=== PATIENT | male | born 1940 | race African-American/Black ===

== ENCOUNTER 2024-02-26 07:28 | Inpatient (IN) | payer OTHER ==
[~2024-02-26] VITALS: Ht 190.5 cm; Wt 97.5 kg
[2024-02-26 08:37] LABS: CHLORIDE 107 mEq/L (98-107); INR 1.1; PARTIAL THROMBOPLASTIN TIME 34.6 sec (23.4-31.0); POTASSIUM 4.3 mEq/L (3.5-5.1); PROTHROMBIN TIME 11.9 sec (9.6-11.0); SODIUM 141 mEq/L (136-145)
[2024-02-26 08:38] LABS: BASOPHILS % 0.3 % (0.0-2.0); CALCIUM 9.3 mg/dL (8.7-10.4); CARBON DIOXIDE 24 mEq/L (21-32); DIFFERENTIAL COMMENT 0; HEMATOCRIT. 31.3 % (42.0-52.0); HEMOGLOBIN. 9.6 g/dL (14.0-18.0); LYMPHOCYTES % 11.6 % (20.0-50.0); MEAN CORPUSCULAR HEMOGLOBIN 23.6 pg (28.0-32.0); MEAN CORPUSCULAR HGB CONC 30.6 g/dL (31.0-37.0); MEAN CORPUSCULAR VOLUME 77.1 fL (80.0-94.0); MEAN PLATELET VOLUME 10.5 fl (7.4-10.4); MONOCYTES % 7.1 % (2.0-8.0); PLATELET 206 x1000/uL (130-400); RED BLOOD CELL COUNT 4.06 mill/uL (4.7-6.1); RED CELL DISTRIBUTION WIDTH 20.4 % (11.6-14.6); WHITE BLOOD COUNT 9.1 x1000/uL (4.5-11.0)
[2024-02-26 08:43] LABS: CREATININE 1.3 mg/dL (0.6-1.3); GLUCOSE 160 mg/dL (70-105); UREA NITROGEN BLOOD 19 mg/dL (9-23)
[2024-02-26 09:09] LABS: TROPONIN I HIGH SENSITIVITY 910 ng/L (3.0-53)
[2024-02-26] MEDS: CLOPIDOGREL 75MG TABLET PO ONE (09:26)
[2024-02-26] MEDS: ASPIRIN 325MG EC TABLET PO ONE (09:26)
[2024-02-26] MEDS ORDERED: GUAIFENESIN 200MG/10ML SUGAR FREE UDC PO PRN (11:15)
[2024-02-26] MEDS ORDERED: CLONIDINE 0.1MG TABLET PO PRN (11:15)
[2024-02-26] MEDS ORDERED: DOCUSATE SODIUM 100MG CAPSULE PO PRN (11:15)
[2024-02-26] MEDS ORDERED: DEXTROSE 50% WATER 50ML SYRINGE IV PRN (11:15)
[2024-02-26] MEDS ORDERED: ACETAMINOPHEN 325MG TABLET PO PRN (11:15)
[2024-02-26] MEDS ORDERED: NITROGLYCERIN 0.4MG TABLET SL SL PRN (12:00)
[2024-02-26] MEDS: BLOOD SUGAR DIAGNOSTIC STRIP TEST SCH (13:00)
[2024-02-26] MEDS: INSULIN LISPRO 100 UNITS/ML SUBCUT SCH (13:20)
[2024-02-26 18:12] LABS: IRON 27 ug/dL (65-175)
[2024-02-26 18:15] LABS: CREATINE KINASE 1132 IU/L (46-171); TOTAL IRON BINDING CAPACITY 273 ug/dl (250-425)
[2024-02-26 18:20] LABS: FERRITIN 10 ng/mL (22-322); FOLIC ACID (FOLATE) SERUM > 20.00 ng/mL (>5.38)
[2024-02-26 18:21] LABS: VITAMIN B12 SERUM 453 pg/mL (211-911)
[2024-02-26 18:23] LABS: TROPONIN I HIGH SENSITIVITY 14981 ng/L (3.0-53)
[2024-02-26] MEDS: ENOXAPARIN 150MG/ML SYR SUBCUT SCH (18:33)
[2024-02-26] MEDS: IPRATROPIUM/ALBUTEROL 0.5-3(2.5)MG/3ML NEB HHN PRN (18:44)
[2024-02-26 18:59] VITALS: PULSE 67; RESP 18; O2SAT 98
[2024-02-26 20:00] VITALS: BP 137/62; PULSE 62; RESP 19; TEMP 36.89184; O2SAT 97
[2024-02-26] MEDS ORDERED: TICAGRELOR 90 MG TABLET PO SCH (21:00)
[2024-02-26 22:00] VITALS: BP 138/61; PULSE 64; RESP 16; O2SAT 97
[2024-02-26] MEDS: ATORVASTATIN CALCIUM 40MG TABLET PO SCH (22:19)
[2024-02-27] VITALS (13 sets, daily range): BP systolic 113–159; BP diastolic 59–87; PULSE 62–75; RESP 18–25; TEMP 36.16956–37.61412; O2SAT 91–97
[2024-02-27 00:03] LABS: TROPONIN I HIGH SENSITIVITY 16586 ng/L (3.0-53)
[2024-02-27 00:05] LABS: CREATINE KINASE 1297 IU/L (46-171)
[2024-02-27] MEDS ORDERED: OMEP20CA14 PO (00:09)
[2024-02-27] MEDS ORDERED: ISOS60TA76 PO (00:09)
[2024-02-27] MEDS ORDERED: LOSA25TA26 PO (00:09)
[2024-02-27] MEDS ORDERED: ATOR40TA70 MT (00:09)
[2024-02-27] MEDS ORDERED: FLUT1BLS3 IH (00:09)
[2024-02-27] MEDS ORDERED: METF-414 PO (00:09)
[2024-02-27] MEDS ORDERED: FAMO40TA7 MT (00:09)
[2024-02-27] MEDS ORDERED: PRIM50TA5 MT (00:09)
[2024-02-27] MEDS ORDERED: NITROGLYCERIN 0.4MG TABLET SL SL PRN (01:15)
[2024-02-27] MEDS: ONDANSETRON HCL 4MG/2ML INJ IV PRN (02:21)
[2024-02-27 02:31] LABS: CLARITY URINE CLEAR (CLEAR); COLOR URINE YELLOW (YELLOW); GLUCOSE URINE 3+ (NEGATIVE); KETONES URINE TRACE (NEGATIVE); LEUKOCYTE ESTERASE URINE NEGATIVE (NEGATIVE); NITRITE URINE NEGATIVE (NEGATIVE); OCCULT BLOOD URINE NEGATIVE (NEGATIVE); PH URINE 5.5 (4.5-8.0); PROTEIN URINE NEGATIVE (NEGATIVE); SPECIFIC GRAVITY URINE 1.024 (1.005-1.030); UROBILINOGEN URINE 0.2 E.U./dL (0.2-1.0)
[2024-02-27 02:39] LABS: *AMPHETAMINES SCREEN URINE NEGATIVE (NEGATIVE); *BENZODIAZEPINES SCREEN URINE NEGATIVE (NEGATIVE)
[2024-02-27 02:40] LABS: *BARBITURATES SCREEN URINE NEGATIVE (NEGATIVE); *COCAINE SCREEN URINE NEGATIVE (NEGATIVE); CANNABINOID URINE SCREEN NEGATIVE (NEGATIVE); ECSTASY MDMA SCREEN URINE NEGATIVE (NEGATIVE); METHADONE URINE SCREEN NEGATIVE (NEGATIVE); OPIATES URINE SCREEN NEGATIVE (NEGATIVE); PHENCYCLIDINE URINE SCREEN NEGATIVE (NEGATIVE)
[2024-02-27 03:43] LABS: SQUAMOUS EPITHELIAL CELL URINE FEW /lpf (RARE/1+)
[2024-02-27 03:44] LABS: RBC URINE 0-2 /hpf (0-2); WBC URINE 0-2 /hpf (0-2)
[2024-02-27 03:45] LABS: BACTERIA URINE NONE SEEN
[2024-02-27 07:34] LABS: CARBON DIOXIDE 23 mEq/L (21-32); CHLORIDE 106 mEq/L (98-107); POTASSIUM 4.8 mEq/L (3.5-5.1); SODIUM 142 mEq/L (136-145)
[2024-02-27 07:35] LABS: CALCIUM 9.5 mg/dL (8.7-10.4)
[2024-02-27 07:38] LABS: BASOPHILS % 0.2 % (0.0-2.0); DIFFERENTIAL COMMENT 0; HEMATOCRIT. 35.3 % (42.0-52.0); HEMOGLOBIN. 10.8 g/dL (14.0-18.0); LYMPHOCYTES % 9.4 % (20.0-50.0); MEAN CORPUSCULAR HEMOGLOBIN 23.1 pg (28.0-32.0); MEAN CORPUSCULAR HGB CONC 30.6 g/dL (31.0-37.0); MEAN CORPUSCULAR VOLUME 75.7 fL (80.0-94.0); MEAN PLATELET VOLUME 11.1 fl (7.4-10.4); MONOCYTES % 8.6 % (2.0-8.0); NEUTROPHILS % 81.8 % (40.0-76.0); PLATELET 226 x1000/uL (130-400); RED BLOOD CELL COUNT 4.66 mill/uL (4.7-6.1); RED CELL DISTRIBUTION WIDTH 19.6 % (11.6-14.6); WHITE BLOOD COUNT 14.8 x1000/uL (4.5-11.0)
[2024-02-27 07:39] LABS: CREATININE 1.3 mg/dL (0.6-1.3); GLUCOSE 142 mg/dL (70-105)
[2024-02-27 07:40] LABS: LDL CHOLESTEROL 58 mg/dL (5-100); TRIGLYCERIDE 96 mg/dL (0-150); UREA NITROGEN BLOOD 17 mg/dL (9-23)
[2024-02-27 07:42] LABS: CHOLESTEROL 139 mg/dL (<200); HDL CHOLESTEROL 58 mg/dL (>55); THYROID STIMULATING HORMONE 3.14 uIU/mL (0.55-4.78)
[2024-02-27] MEDS: ASPIRIN 81MG EC TABLET PO SCH (08:39)
[2024-02-27] MEDS: FUROSEMIDE 40MG/4ML VIAL IV SCH (08:39)
[2024-02-27] MEDS: MAGNESIUM/ALUMINUM HYDROXIDE/SIMETHICONE 30ML UDC PO PRN (20:52)
[2024-02-28] VITALS (30 sets, daily range): BP systolic 78–167; BP diastolic 54–94; PULSE 64–104; RESP 17–37; TEMP 37.00296–38.00304; O2SAT 74–100
[2024-02-28 01:47] LABS: TROPONIN I HIGH SENSITIVITY 7715 ng/L (3.0-53)
[2024-02-28] MEDS ORDERED: INSULIN GLARGINE 100 UNITS/ML SUBCUT SCH (10:00)
[2024-02-28] MEDS: ACETAMINOPHEN 325MG TABLET PO PRN (13:03)
[2024-02-28] MEDS ORDERED: FENTANYL 2500MCG/250ML PMX 250 ML IV PRN (16:15)
[2024-02-28] MEDS ORDERED: IPRATROPIUM/ALBUTEROL 0.5-3(2.5)MG/3ML NEB HHN PRN (17:30)
[2024-02-28 18:35] LABS: BG BASE EXCESS -8.1 mmol/L (-2.0-3.0); BG CARBOXYHEMOGLOBIN 0.7 % (0.5-1.5); BG DEOXYHEMOGLOBIN 8.4 % (0.0-5.0); BG FRACTION INSPIRED OXYGEN 100; BG HCO3 ACT 20.1 mmol/L (21.0-28.0); BG METHEMOGLOBIN 0.3 % (0.5-1.5); BG OXYGEN SATURATION 91.5 % (94.0-98.0); BG OXYHEMOGLOBIN 90.6 % (94.0-98.0); BG PCO2 52.4 mmHg (35.0-48.0); BG PH 7.202 (7.350-7.450); BG PO2 79.3 mmHg (83.0-108.0); BG SAMPLE SITE RIGHT BRACHIAL; BG TOTAL HEMOGLOBIN 12.6 g/dL (13.5-17.5); BG VENT MODE VENT - AC
[2024-02-28] MEDS: FENTANYL CITRATE 2,500 MCG in SODIUM CHLORIDE 0.9% 200 ML IV PRN (19:00)
[2024-02-28] MEDS ORDERED: DEXTROSE 50% WATER 50ML SYRINGE IV PRN (19:30)
[2024-02-28] MEDS: SODIUM CHLORIDE 0.9% 500 ML IV ONE (19:53)
[2024-02-28] MEDS: BLOOD SUGAR DIAGNOSTIC STRIP TEST SCH (21:00)
[2024-02-28] MEDS ORDERED: CEFTRIAXONE 1GM/50ML 50 ML IV SCH (21:00)
[2024-02-28] MEDS: IPRATROPIUM/ALBUTEROL 0.5-3(2.5)MG/3ML NEB HHN SCH (21:18)
[2024-02-28 22:00] LABS: HEMOGLOBIN. 11.5 g/dL (14.0-18.0); MEAN CORPUSCULAR HEMOGLOBIN 23.4 pg (28.0-32.0); MEAN CORPUSCULAR HGB CONC 30.3 g/dL (31.0-37.0); MEAN CORPUSCULAR VOLUME 77.3 fL (80.0-94.0); MEAN PLATELET VOLUME 10.5 fl (7.4-10.4); PLATELET 231 x1000/uL (130-400); RED BLOOD CELL COUNT 4.91 mill/uL (4.7-6.1); RED CELL DISTRIBUTION WIDTH 20.3 % (11.6-14.6)
[2024-02-28 22:04] LABS: DIFFERENTIAL COMMENT 1
[2024-02-28 22:05] LABS: CHLORIDE 104 mEq/L (98-107); POTASSIUM 4.8 mEq/L (3.5-5.1); SODIUM 138 mEq/L (136-145)
[2024-02-28 22:06] LABS: CALCIUM 8.8 mg/dL (8.7-10.4); CARBON DIOXIDE 24 mEq/L (21-32)
[2024-02-28 22:11] LABS: GLUCOSE 180 mg/dL (70-105); UREA NITROGEN BLOOD 30 mg/dL (9-23)
[2024-02-28 22:13] LABS: ALANINE AMINOTRANSFERASE 1095 IU/L (10-49); ASPARTATE AMINOTRANSFERASE 854 IU/L (<34); BILIRUBIN TOTAL 0.8 mg/dL (0.1-1.0); PROTEIN TOTAL 6.8 g/dL (6.0-8.3)
[2024-02-28] MEDS: DOXYCYCLINE 100MG/100ML 100 ML IV SCH (22:14)
[2024-02-28] MEDS: AMIODARONE 200MG TABLET PO SCH (22:15)
[2024-02-28 22:29] LABS: CREATININE 2.3 mg/dL (0.6-1.3); TROPONIN I HIGH SENSITIVITY 7278 ng/L (3.0-53)
[2024-02-28] MEDS: NOREPINEPHRINE 8MG/250ML PMX 250 ML IV PRN (23:09)
[2024-02-28 23:21] LABS: PLATELET ESTIMATE NORMAL
[2024-02-28 23:22] LABS: ANISOCYTOSIS 2+; OVALOCYTES 1+
[2024-02-28] MEDS ORDERED: LACTATED RINGERS 1,000 ML IV SCH (23:30)
[2024-02-29] VITALS (175 sets, daily range): BP systolic 48–201; BP diastolic 16–132; PULSE 27–132; RESP 10–57; TEMP 34.4472–37.05852; O2SAT 54–100
[2024-02-29] MEDS: PIPERACILLIN/TAZO 3.375G/100ML 100 ML IV SCH (01:18)
[2024-02-29] MEDS: ACETYLCYSTEINE 200MG/ML 20% VIAL 4ML INH SCH (02:27)
[2024-02-29] MEDS: PROPOFOL 10MG/ML 100ML 100 ML IV PRN (02:28)
[2024-02-29] MEDS: NOREPINEPHRINE 8MG/250ML PMX 250 ML IV PRN (03:39)
[2024-02-29 06:37] LABS: HEMATOCRIT 38.9 % (42.0-52.0); HEMOGLOBIN 11.8 g/dL (14.0-18.0); MEAN CORPUSCULAR HEMOGLOBIN 23.4 pg (28.0-32.0); MEAN CORPUSCULAR HGB CONC 30.2 g/dL (31.0-37.0); MEAN CORPUSCULAR VOLUME 77.4 fL (80.0-94.0); PLATELET 195 x1000/uL (130-400); RED BLOOD CELL COUNT 5.03 mill/uL (4.7-6.1)
[2024-02-29 07:33] LABS: CARBON DIOXIDE 20 mEq/L (21-32); CHLORIDE 104 mEq/L (98-107); POTASSIUM 5.6 mEq/L (3.5-5.1); SODIUM 138 mEq/L (136-145)
[2024-02-29 07:34] LABS: CALCIUM 8.7 mg/dL (8.7-10.4)
[2024-02-29 07:39] LABS: CREATININE 2.8 mg/dL (0.6-1.3); GLUCOSE 132 mg/dL (70-105); TRIGLYCERIDE 160 mg/dL (0-150); UREA NITROGEN BLOOD 38 mg/dL (9-23)
[2024-02-29 07:41] LABS: PHOSPHORUS 7.1 mg/dL (2.5-4.9)
[2024-02-29] MEDS: NOREPINEPHRINE 32 MG in DEXT 5% WATER 218 ML IV PRN (09:00)
[2024-02-29] MEDS: FERROUS SULFATE 300MG/5ML UDC PO SCH (09:18)
[2024-02-29 09:48] LABS: BG BASE EXCESS -11.6 mmol/L (-2.0-3.0); BG CARBOXYHEMOGLOBIN 0.3 % (0.5-1.5); BG FRACTION INSPIRED OXYGEN 100; BG HCO3 ACT 15.5 mmol/L (21.0-28.0); BG METHEMOGLOBIN 0.3 % (0.5-1.5); BG OXYHEMOGLOBIN 97.4 % (94.0-98.0); BG PCO2 39.6 mmHg (35.0-48.0); BG PH 7.211 (7.350-7.450); BG PO2 142.7 mmHg (83.0-108.0); BG SAMPLE SITE RIGHT RADIAL; BG TOTAL HEMOGLOBIN 10.3 g/dL (13.5-17.5); BG VENT MODE VENT - AC
[2024-02-29] MEDS ORDERED: INSULIN GLARGINE 100 UNITS/ML SUBCUT SCH (10:00)
[2024-02-29] MEDS ORDERED: DOPAMINE 400MG/250ML PREMIX 250 ML IV PRN (11:00)
[2024-02-29 11:17] LABS: BG BASE EXCESS -19.8 mmol/L (-2.0-3.0); BG CARBOXYHEMOGLOBIN 0.3 % (0.5-1.5); BG DEOXYHEMOGLOBIN 11.5 % (0.0-5.0); BG FRACTION INSPIRED OXYGEN 100; BG HCO3 ACT 11.6 mmol/L (21.0-28.0); BG METHEMOGLOBIN 0.3 % (0.5-1.5); BG OXYGEN SATURATION 88.4 % (94.0-98.0); BG OXYHEMOGLOBIN 87.9 % (94.0-98.0); BG PH 6.976 (7.350-7.450); BG PO2 86.1 mmHg (83.0-108.0); BG SAMPLE SITE RIGHT RADIAL; BG TOTAL HEMOGLOBIN 12.7 g/dL (13.5-17.5); BG VENT MODE VENT - AC
[2024-02-29] MEDS ORDERED: INSULIN LISPRO 100 UNITS/ML SUBCUT SCH (11:30)
[2024-02-29] MEDS: SODIUM BICARBONATE 8.4% 50MEQ/50ML SYR IV NR ×4 (11:49→19:56)
[2024-02-29] MEDS ORDERED: SODIUM CHLORIDE 0.9% 1,000 ML IV SCH (12:45)
[2024-02-29] MEDS: PHENYLEPHRINE 50MG/250ML PMX 250 ML IV PRN (13:10)
[2024-02-29] MEDS: NOREPINEPHRINE 64 MG in DEXT 5% WATER 436 ML IV PRN (13:12)
[2024-02-29] MEDS ORDERED: ALBUTEROL (0.083%) 2.5MG/3ML NEB HHN NR (14:00)
[2024-02-29 14:16] LABS: BG BASE EXCESS -21.6 mmol/L (-2.0-3.0); BG CARBOXYHEMOGLOBIN 0.5 % (0.5-1.5); BG DEOXYHEMOGLOBIN 5.7 % (0.0-5.0); BG FRACTION INSPIRED OXYGEN 100; BG HCO3 ACT 8.8 mmol/L (21.0-28.0); BG METHEMOGLOBIN 0.3 % (0.5-1.5); BG OXYGEN SATURATION 94.3 % (94.0-98.0); BG OXYHEMOGLOBIN 93.5 % (94.0-98.0); BG PCO2 36.8 mmHg (35.0-48.0); BG PH 6.997 (7.350-7.450); BG PO2 105.5 mmHg (83.0-108.0); BG SAMPLE SITE RIGHT RADIAL; BG TOTAL HEMOGLOBIN 11.6 g/dL (13.5-17.5); BG VENT MODE VENT - AC
[2024-02-29] MEDS: VASOPRESSIN 20 UNIT in SODIUM CHLORIDE 0.9% 99 ML IV PRN (14:45)
[2024-02-29] MEDS: MIDAZOLAM 100MG/100ML PMX 100 ML IV PRN (15:28)
[2024-02-29] MEDS: INSULIN REGULAR (HUMULIN R) 1000UNITS/10ML VIAL IV NR ×2 (15:46→17:33)
[2024-02-29] MEDS: DEXTROSE 50% WATER 50ML SYRINGE IV NR ×2 (15:46→17:32)
[2024-02-29 15:53] LABS: HEMATOCRIT. 32.7 % (42.0-52.0); HEMOGLOBIN. 9.1 g/dL (14.0-18.0); MEAN CORPUSCULAR HEMOGLOBIN 23.8 pg (28.0-32.0); MEAN CORPUSCULAR HGB CONC 27.8 g/dL (31.0-37.0); MEAN CORPUSCULAR VOLUME 85.8 fL (80.0-94.0); MEAN PLATELET VOLUME 10.9 fl (7.4-10.4); PLATELET 156 x1000/uL (130-400); RED BLOOD CELL COUNT 3.82 mill/uL (4.7-6.1); RED CELL DISTRIBUTION WIDTH 21.2 % (11.6-14.6); WHITE BLOOD COUNT 8.2 x1000/uL (4.5-11.0)
[2024-02-29] MEDS: EPINEPHRINE 5 MG in SODIUM CHLORIDE 0.9% 245 ML IV PRN (16:13)
[2024-02-29] MEDS: DEXT 5%/0.9% NACL 1,000 ML IV SCH (16:27)
[2024-02-29 16:34] LABS: CHLORIDE 103 mEq/L (98-107); SODIUM 142 mEq/L (136-145)
[2024-02-29 16:36] LABS: CALCIUM 8.2 mg/dL (8.7-10.4); CARBON DIOXIDE 10 mEq/L (21-32)
[2024-02-29 16:40] LABS: DIFFERENTIAL COMMENT 1
[2024-02-29 16:41] LABS: GLUCOSE 58 mg/dL (70-105); UREA NITROGEN BLOOD 48 mg/dL (9-23)
[2024-02-29 16:43] LABS: ALBUMIN 2.6 g/dL (3.2-4.8); BILIRUBIN DIRECT 0.5 mg/dL (<=3.0); BILIRUBIN TOTAL 0.7 mg/dL (0.1-1.0); CREATINE KINASE 745 IU/L (46-171)
[2024-02-29] MEDS ORDERED: LANTHANUM CARBONATE 500MG CHEW TABLET PO SCH (17:00)
[2024-02-29 17:03] LABS: ALANINE AMINOTRANSFERASE > 3300 IU/L (10-49); ASPARTATE AMINOTRANSFERASE > 6000 IU/L (<34); CREATININE 4.9 mg/dL (0.6-1.3); POTASSIUM 6.3 mEq/L (3.5-5.1); PROTEIN TOTAL 4.3 g/dL (6.0-8.3)
[2024-02-29 17:04] LABS: LACTIC ACID 20.2 mmol/L (0.4-2.0)
[2024-02-29] MEDS ORDERED: ALBUTEROL (0.5%) 2.5MG/0.5ML NEB HHN ONE (17:15)
[2024-02-29] MEDS ORDERED: ALBUTEROL (0.083%) 2.5MG/3ML NEB HHN ONE (17:15)
[2024-02-29] MEDS ORDERED: SODIUM POLYSTYRENE SULFONATE 15 G/60 ML BOT PO ONE (17:15)
[2024-02-29] MEDS: SODIUM ZIRCONIUM CYCLOSILICATE 10GM/PACKET PO NR (17:32)
[2024-02-29] MEDS: CALCIUM CHLORIDE 1GM/10ML SYR IV NR (17:32)
[2024-02-29 18:12] LABS: PLATELET ESTIMATE NORMAL
[2024-02-29 18:31] LABS: BG BASE EXCESS -21.2 mmol/L (-2.0-3.0); BG CARBOXYHEMOGLOBIN 0.9 % (0.5-1.5); BG DEOXYHEMOGLOBIN 19.5 % (0.0-5.0); BG FRACTION INSPIRED OXYGEN 100; BG METHEMOGLOBIN 0.3 % (0.5-1.5); BG OXYGEN SATURATION 80.3 % (94.0-98.0); BG OXYHEMOGLOBIN 79.3 % (94.0-98.0); BG PCO2 51.6 mmHg (35.0-48.0); BG PH 6.906 (7.350-7.450); BG PO2 68.9 mmHg (83.0-108.0); BG SAMPLE SITE RIGHT RADIAL; BG TOTAL HEMOGLOBIN 6.9 g/dL (13.5-17.5); BG VENT MODE VENT - AC
[2024-02-29] MEDS: EPINEPHRINE 10 MG in SODIUM CHLORIDE 0.9% 240 ML IV PRN (18:44)
[2024-02-29] MEDS: LANTHANUM CARBONATE 500MG CHEW TABLET PO SCH (18:49)
[2024-02-29] MEDS: SODIUM BICARBONATE 8.4% 50MEQ/50ML SYR IV SCH (19:21)
[2024-02-29] MEDS: MEROPENEM 500MG/50ML 50 ML IV SCH (19:32)
[2024-02-29] MEDS: SODIUM BICARBONATE 150 MEQ in DEXTROSE 5% WATER 850 ML IV SCH (20:06)
[2024-02-29] MEDS: HYDROCORTISONE SOD SUCCINATE 100 MG/2 ML VIAL IV SCH (21:39)
[2024-02-29] MEDS ORDERED: MEROPENEM 1G/100ML 100 ML IV SCH (22:00)
[2024-02-29 23:13] LABS: BG BASE EXCESS -25.3 mmol/L (-2.0-3.0); BG CARBOXYHEMOGLOBIN 0.3 % (0.5-1.5); BG DEOXYHEMOGLOBIN 28.5 % (0.0-5.0); BG FRACTION INSPIRED OXYGEN 100; BG METHEMOGLOBIN 0.3 % (0.5-1.5); BG OXYGEN SATURATION 71.3 % (94.0-98.0); BG OXYHEMOGLOBIN 70.9 % (94.0-98.0); BG PCO2 43.3 mmHg (35.0-48.0); BG PH 6.826 (7.350-7.450); BG PO2 60.3 mmHg (83.0-108.0); BG TOTAL HEMOGLOBIN 7.3 g/dL (13.5-17.5); BG VENT MODE VENT - AC
[2024-03-01] MEDS ORDERED: PANTOPRAZOLE SODIUM 40 MG/VIAL IV SCH (09:00)
== END 2024-03-01 03:58 | DRG 871 ==
LOC: ER 07:28 → EDBEDREQSVC 09:18 → EDBEDREQ 09:18 → EDBEDREQTM 09:18 → 5EST 20:07 → MICUNO 02-29 10:10
PROVIDERS: ADMIT Hospitalist; ATTEND Hospitalist
PROC: 5A1945Z Respiratory Ventilation, 24-96 Consecutive Hours (ICD-10-PCS; principal; 2024-02-28)
PROC: 0BH17EZ Insertion of Endotracheal Airway into Trachea, Via Natural or Artificial Opening (ICD-10-PCS; 2024-02-28)
PROC: 06HY33Z Insertion of Infusion Device into Lower Vein, Percutaneous Approach (ICD-10-PCS; 2024-02-28)
PROC: 5A12012 Performance of Cardiac Output, Single, Manual (ICD-10-PCS; 2024-03-01)
DX: A41.9 Sepsis, unspecified organism (principal); I21.4 Non-ST elevation (NSTEMI) myocardial infarction; I50.43 Acute on chronic combined systolic (congestive) and diastolic (congestive) heart failure; J69.0 Pneumonitis due to inhalation of food and vomit; J96.01 Acute respiratory failure with hypoxia; J96.02 Acute respiratory failure with hypercapnia; K72.00 Acute and subacute hepatic failure without coma; N17.0 Acute kidney failure with tubular necrosis; E87.4 Mixed disorder of acid-base balance; I48.92 Unspecified atrial flutter; J44.0 Chronic obstructive pulmonary disease with (acute) lower respiratory infection; M62.82 Rhabdomyolysis; E66.9 Obesity, unspecified; I11.0 Hypertensive heart disease with heart failure; D50.0 Iron deficiency anemia secondary to blood loss (chronic); E83.39 Other disorders of phosphorus metabolism; E83.42 Hypomagnesemia; E11.9 Type 2 diabetes mellitus without complications; E87.5 Hyperkalemia; F12.10 Cannabis abuse, uncomplicated; F17.200 Nicotine dependence, unspecified, uncomplicated; I25.10 Atherosclerotic heart disease of native coronary artery without angina pectoris; I44.1 Atrioventricular block, second degree; I48.91 Unspecified atrial fibrillation; R57.0 Cardiogenic shock; Z79.02 Long term (current) use of antithrombotics/antiplatelets; Z79.84 Long term (current) use of oral hypoglycemic drugs; Z95.810 Presence of automatic (implantable) cardiac defibrillator; Z68.26 Body mass index [BMI] 26.0-26.9, adult
CPT/HCPCS: 31500; 36415; 36600; 71045; 80048; 80053; 80061; 80076; 80305; 81003; 82270; 82330; 82375; 82550; 82607; 82728; 82746; 82805; 82962; 83036; 83540; 83550; 83605; 83735; 83880; 84100; 84145; 84439; 84443; 84478; 84484; 85025; 85027; 87070; 93005; 93306; 94003; 94640; 99291; A4606; J0696; J1265; J1650; J1720; J1815; J1940; J2185; J2405; J2543; J2704; J3490; J7030; J7042; J7050; J7060; J7070; J7608